=== PATIENT | female | born 1960 | race Caucasian/White ===

== ENCOUNTER → 2017-02-06 | Outpatient (CLI) | payer OTHER ==
[~2017-02-06] MED LIST: CHOL100015 PO; LEVO100T PO; METO25TA35 PO; ROSU10TA PO
[2017-02-06 13:32] LABS: ASPARTATE AMINO TRANSFERASE 9 U/L (15-37); BLOOD UREA NITROGEN 13 mg/dL (7-18)
== END | disposition home or self-care (01) ==
LOC: STAR 12:19
PROVIDERS: ATTEND Surgery
DX: Z01.818 Encounter for other preprocedural examination (principal); Z15.01 Genetic susceptibility to malignant neoplasm of breast; I10 Essential (primary) hypertension; E78.5 Hyperlipidemia, unspecified
CPT/HCPCS: 36415; 80053

== ENCOUNTER 2017-02-17 06:03 | Day surgery (SDC) | payer OTHER ==
[~2017-02-17] VITALS: Ht 152.4 cm; Wt 65.0 kg
[2017-02-17] MEDS ORDERED: LACTATED RINGERS 1,000 ML IV SCH (06:27)
[2017-02-17 06:48] VITALS: BP 180/90
[2017-02-17] MEDS ORDERED: ISOSULFAN BLUE 10 MG/ML, 5ML IV ONE (07:36)
[2017-02-17] MEDS ORDERED: LIDOCAINE/PF 1%, 30ML ONE (07:37)
[2017-02-17] MEDS ORDERED: SODIUM BICARBONATE 4.2%, 5ML ONE (07:37)
[2017-02-17] MEDS ORDERED: BUPIVACAINE/PF-EPI 0.25% 1:200K ONE (07:37)
[2017-02-17] MEDS ORDERED: SODIUM CHLORIDE 0.9% 0 ML ONE (07:37)
[2017-02-17] MEDS ORDERED: SCOPOLAMINE PATCH, 1.5MG PATCH.TD72 TD ONE ×2 (08:19)
[2017-02-17] MEDS ORDERED: BUPIVACAINE/PF 0.5% ONE (08:21)
[2017-02-17] MEDS ORDERED: BUPIVACAINE/PF 0.25% ONE (08:21)
[2017-02-17] MEDS ORDERED: FENTANYL PF 250 MCG/5ML ONE (08:31)
[2017-02-17] MEDS ORDERED: KETAMINE 10 MG/ML, 20ML ONE (08:31)
[2017-02-17] MEDS ORDERED: SUCCINYLCHOLINE 20 MG/ML, 10ML ONE (08:59)
[2017-02-17] MEDS ORDERED: DEXAMETHASONE 4 MG/ML, 1ML ONE (08:59)
[2017-02-17] MEDS ORDERED: PROPOFOL 10 MG/ML, 20ML ONE (08:59)
[2017-02-17] MEDS ORDERED: CEFAZOLIN 1,000 MG ONE (08:59)
[2017-02-17] MEDS ORDERED: MEPERIDINE/PF 25MG/0.5ML IVPush PRN (09:30)
[2017-02-17] MEDS ORDERED: PROMETHAZINE 25 MG/ML, 1ML IV PRN (09:30)
[2017-02-17] MEDS ORDERED: hydrALAzine 20 MG/ML, 1ML IV PRN (09:30)
[2017-02-17] MEDS ORDERED: MIDAZOLAM 1 MG/ML, 2ML IV PRN (09:30)
[2017-02-17] MEDS ORDERED: FENTANYL PF 100 MCG/2ML IV PRN (09:30)
[2017-02-17] MEDS ORDERED: ONDANSETRON 2MG/ML, 2ML IVPush PRN (09:30)
[2017-02-17] MEDS ORDERED: HYDROmorphone 1 MG/ML, 1ML IV PRN (09:30)
[2017-02-17] MEDS ORDERED: HYDROcodone/APAP 7.5-325MG/15ML UDC PO PRN (09:30)
[2017-02-17] MEDS ORDERED: LABETALOL 5MG/ML, 20ML IV PRN (09:30)
[2017-02-17] MEDS ORDERED: HYDROmorphone 2 MG/ML, 1ML ONE (12:00)
== END 2017-02-17 14:50 | disposition home or self-care (01) ==
LOC: OUT 06:03
PROVIDERS: ATTEND Surgery
DX: Z15.01 Genetic susceptibility to malignant neoplasm of breast (principal); Z85.3 Personal history of malignant neoplasm of breast; R92.0 Mammographic microcalcification found on diagnostic imaging of breast; I10 Essential (primary) hypertension; E78.5 Hyperlipidemia, unspecified; E89.0 Postprocedural hypothyroidism; Z90.710 Acquired absence of both cervix and uterus; Z72.89 Other problems related to lifestyle
CPT/HCPCS: 19303; 88307; C1729; J0330; J0690; J1100; J1170; J2704; J3010; J3490; J7120